=== PATIENT | female | born 1990 | race Two or more races ===

== ENCOUNTER → 2022-06-24 | Emergency (ER) | payer OTHER ==
[~2022-06-24] VITALS: Ht 172.7 cm; Wt 57.2 kg
== END | disposition home or self-care (01) ==
LOC: ER 10:18
DX: F41.9 Anxiety disorder, unspecified (principal)

== ENCOUNTER 2024-08-26 19:01 | Emergency (ER) | payer OTHER ==
[~2024-08-26] VITALS: Ht 172.7 cm; Wt 58.5 kg
[2024-08-26] MEDS ORDERED: ONDANSETRON HCL 2 MG/ML VIAL ONE (19:57)
[2024-08-26] MEDS ORDERED: FAMOTIDINE/PF 20 MG/2 ML VIAL ONE (19:57)
[2024-08-26] MEDS ORDERED: ONDANSETRON HCL 2 MG/ML VIAL IV ONE (20:00)
[2024-08-26] MEDS ORDERED: FAMOtidine 10 MG/ML (4ML VIAL) IV PUSH ONE (20:00)
[2024-08-26] MEDS ORDERED: 0.9 % SODIUM CHLORIDE 1,000 ML IV ONE (20:00)
[2024-08-26 20:12] LABS: HEMATOCRIT 38.4 % (36.0-45.00); HEMOGLOBIN 12.8 g/dL (12.0-15.00); MEAN CELL VOLUME 88.3 fL (80.00-100.00); MEAN CORPUSCULAR HEMOGLOBIN 29.5 pg (27.00-32.0); MEAN CORPUSCULAR HGB CONC 33.4 g/dl (32.0-36.0); PLATELET COUNT 210 K/uL (150-450); RED BLOOD COUNT 4.35 M/uL (4.00-6.00); RED CELL DISTRIBUTION WIDTH 13.8 % (11.5-14.5)
[2024-08-26 20:21] LABS: URINE BILIRRUBIN Negative (NEGATIVE); URINE BLOOD Negative; URINE COLOR Yellow; URINE GLUCOSE Negative (NEGATIVE); URINE KETONE 15 (NEGATIVE); URINE LEUKOCYTE Moderate; URINE NITRATE Negative; URINE PROTEIN Negative (NEGATIVE); URINE UROBILINOGEN 0.2 E.U./dl
[2024-08-26 20:25] LABS: URINE BACTERIA 818.6 uL (0.0-1933); URINE EPITHELIAL CELLS 21.2 uL (0.0-38.8); URINE WBC 69.4 uL (0.0-23.2)
[2024-08-26] MEDS ORDERED: BUTALB/ACETAMINOPHEN/CAFFEINE 1 TAB TABLET PO ONE (20:30)
[2024-08-26 20:36] LABS: URINE APPEARANCE SL CLOUDY
[2024-08-26] MEDS ORDERED: BACTRIM DS TAB1 EACH PO (22:35)
[2024-08-26] MEDS ORDERED: ZOFRAN8 MG PO (22:35)
[2024-08-26] MEDS ORDERED: PEPCID AC20 MG PO (22:35)
== END 2024-08-26 22:40 | disposition home or self-care (01) ==
LOC: ER 19:03
PROVIDERS: General Practice
DX: R11.2 Nausea with vomiting, unspecified (principal); R11.10 Vomiting, unspecified; Z20.822 Contact with and (suspected) exposure to COVID-19